=== PATIENT | male | born 1955 | race Caucasian/White ===

== ENCOUNTER 2022-02-09 11:08 | Emergency (ER) | payer MEDICARE ==
[2022-02-09] MEDS ORDERED: Aspirin 81 MG Tab.Chew PO ONE (11:55)
[2022-02-09] MEDS ORDERED: Sodium Chloride 0.9% 10 ML Syringe FLUSH PRN (11:56)
[2022-02-09] MEDS ORDERED: Nitroglycerin 0.4 MG Tab.SL SL ONE (11:56)
== END 2022-02-09 15:15 | disposition home or self-care (01) ==
LOC: JP.ED 11:08
DX: R07.89 Other chest pain (principal); E78.5 Hyperlipidemia, unspecified; I10 Essential (primary) hypertension; F17.211 Nicotine dependence, cigarettes, in remission; Z79.82 Long term (current) use of aspirin; Z79.899 Other long term (current) drug therapy; Z20.822 Contact with and (suspected) exposure to COVID-19
CPT/HCPCS: 36415; 71045; 80048; 84484; 85025; 93005; 99285; A9270; J3490; U0002